=== PATIENT | male | born 1960 | race Caucasian/White ===

== ENCOUNTER 2020-07-14 10:53 | Emergency (ER) | payer OTHER ==
[~2020-07-14] VITALS: Ht 177.8 cm; Wt 75.7 kg
[2020-07-14] MEDS ORDERED: LOSARTAN POTAS100 MG (11:06)
[2020-07-14] MEDS ORDERED: TENOFOVIR DISO300 MG (11:07)
[2020-07-14] MEDS ORDERED: ABACAVIR300 MG (11:07)
[2020-07-14] MEDS ORDERED: SELZENTRY150 MG (11:07)
[2020-07-14] MEDS ORDERED: TIVICAY50 MG (11:07)
== END 2020-07-14 17:18 | disposition home or self-care (01) ==
LOC: ER 10:53 → CPU-OBS 11:40 → ER 11:40
DX: R07.89 Other chest pain (principal); Z11.52 Encounter for screening for COVID-19
CPT/HCPCS: G0378; G0379; 93005; 82805; 36600

== ENCOUNTER 2022-02-23 08:15 | Emergency (ER) | payer OTHER ==
[~2022-02-23] VITALS: Ht 172.7 cm; Wt 68.0 kg
[~2022-02-23 08:15] MED LIST: ABACAVIR300 MG; LOSARTAN POTAS100 MG; SELZENTRY150 MG; TENOFOVIR DISO300 MG; TIVICAY50 MG
== END 2022-02-23 18:30 | disposition home or self-care (01) ==
LOC: ER 08:15
DX: R42 Dizziness and giddiness (principal); I10 Essential (primary) hypertension; Z21 Asymptomatic human immunodeficiency virus [HIV] infection status; Z20.822 Contact with and (suspected) exposure to COVID-19

== ENCOUNTER 2023-10-22 01:07 | Inpatient (IN) | payer OTHER ==
[~2023-10-22] VITALS: Ht 175.3 cm; Wt 70.3 kg
[2023-10-22] MEDS ORDERED: ZYRTEC10 M3 PO (01:37)
[2023-10-22] MEDS ORDERED: HYOSCYAMINE SULFATE 0.125 MG TAB.SUBL SL STA (01:43)
[2023-10-22] MEDS ORDERED: FAMOTIDINE/PF 20 MG/2 ML VIAL IV PUSH STA (01:43)
[2023-10-22] MEDS ORDERED: TETANUS & DIPHTHERIA TOX,ADULT 0.5 ML VIAL IM STA (01:45)
[2023-10-22] MEDS ORDERED: POTASSIUM CHLORIDE/NACL 0.9% 1,000 ML IV ONE (01:45)
[2023-10-22] MEDS ORDERED: HYOSCYAMINE SULFATE 0.125 MG TAB.SUBL ONE (01:48)
[2023-10-22] MEDS ORDERED: TETANUS DIPHTHERIA TOX. ADSOR 5 ML VIAL IM ONE (01:49)
[2023-10-22] MEDS ORDERED: FAMOTIDINE/PF 20 MG/2 ML VIAL ONE (01:49)
[2023-10-22] MEDS ORDERED: POTASSIUM CHLORIDE/D5-0.9%NACL 20 MEQ/1,000 ML PIGGYBAG IV ONE (01:49)
[2023-10-22 02:05] LABS: HEMATOCRIT 43.2 % (39.0-48.0); HEMOGLOBIN 14.3 g/dL (13-16.00); MEAN CELL VOLUME 82.1 fL (80.0-100.00); MEAN CORPUSCULAR HEMOGLOBIN 27.2 pg (27.00-32.0); MEAN CORPUSCULAR HGB CONC 33.1 g/dl (32.0-36.0); PLATELET COUNT 177 K/uL (150-450); RED BLOOD COUNT 5.27 M/uL (4.00-6.00); RED CELL DISTRIBUTION WIDTH 15.1 % (11.5-14.5)
[2023-10-22 02:39] LABS: ALBUMIN 3.2 gm/dL (3.4-5.0); BILIRUBIN TOTAL 0.47 mg/dL (0.3-1.2); CALCIUM 8.5 mg/dL (8.5-10.1); CREATININE SERUM 1.34 mg/dL (0.70-1.30); GFR 53.84; GLOBULINA 3.3 G/DL (2.4-3.5); POTASSIUM 3.71 mEq/L (3.5-5.1); TOTAL PROTEIN 6.5 gm/dL (6.4-8.2)
[2023-10-22 02:55] LABS: PH,URINE 5.5 (5.0-8.0); URINE APPEARANCE Cloudy; URINE BILIRRUBIN Small (NEGATIVE); URINE BLOOD Negative; URINE COLOR Dark Yellow; URINE GLUCOSE Negative (NEGATIVE); URINE KETONE Trace (NEGATIVE); URINE LEUKOCYTE Negative; URINE NITRATE Negative
[2023-10-22 02:59] LABS: URINE BACTERIA 389.3 uL (0.0-1933); URINE EPITHELIAL CELLS 69.7 uL (0.0-38.8); URINE WBC 20.5 uL (0.0-23.2)
[2023-10-22 03:04] LABS: URINE PROTEIN 100 (NEGATIVE)
[2023-10-22 03:46] LABS: URINE MUCUS SCANT
[2023-10-22] MEDS ORDERED: CIPROFLOXACIN IN 5 % DEXTROSE 400 MG/200 ML PIGGYBAG IV STA (05:41)
[2023-10-22] MEDS ORDERED: LACTOBACILLUS ACIDOPHILUS 1 CAP CAP PO SCH ×2 (09:00→09:54)
[2023-10-22] MEDS ORDERED: DEXTROSE 5 % AND 0.9 % NACL 1,000 ML IV SCH (09:45)
[2023-10-22] MEDS ORDERED: HYOSCYAMINE SULFATE 0.125 MG TAB.SUBL SL SCH (09:52)
[2023-10-22] MEDS ORDERED: BISMUTH SUBSALICYLATE 524 MG/30 ML BLIST.PACK PO SCH (09:53)
[2023-10-22] MEDS ORDERED: LOPERAMIDE HCL 2 MG CAPSULE PO ONE (10:00)
[2023-10-22] MEDS ORDERED: FAMOTIDINE/PF 20 MG/2 ML VIAL IV SCH (17:00)
[2023-10-22] MEDS ORDERED: CIPROFLOXACIN IN 5 % DEXTROSE 200 ML IV SCH (21:00)
[2023-10-23] MEDS ORDERED: SODIUM CHLORIDE 0.45 % 1,000 ML IV SCH (15:15)
[2023-10-23] MEDS ORDERED: LOPERAMIDE HCL 2 MG CAPSULE PO STA (16:35)
[2023-10-23 21:18] LABS: HEMATOCRIT 38.6 % (39.0-48.0); HEMOGLOBIN 13.1 g/dL (13-16.00); MEAN CELL VOLUME 81.6 fL (80.0-100.00); MEAN CORPUSCULAR HEMOGLOBIN 27.8 pg (27.00-32.0); PLATELET COUNT 155 K/uL (150-450); RED BLOOD COUNT 4.72 M/uL (4.00-6.00); RED CELL DISTRIBUTION WIDTH 14.7 % (11.5-14.5)
[2023-10-23 21:35] LABS: CALCIUM 8.1 mg/dL (8.5-10.1); CREATININE SERUM 0.84 mg/dL (0.70-1.30); GFR 92.29; POTASSIUM 4.05 mEq/L (3.5-5.1)
[2023-10-24] MEDS ORDERED: HYOSCYAMINE0.125 M1 SL (10:04)
[2023-10-24] MEDS ORDERED: PEPTO-BISM262 MG/15 PO (10:05)
[2023-10-24] MEDS ORDERED: INTESTINEX680 M1 PO (10:05)
[2023-10-24] MEDS ORDERED: CIPRO500 MG PO (10:06)
[2023-10-24] MEDS ORDERED: PEPCID AC20 MG PO (10:06)
[2023-10-24] MEDS ORDERED: IMODIUM A-D2 M2 PO (10:07)
== END 2023-10-24 13:18 | disposition home or self-care (01) | DRG 391 ==
LOC: ER 01:07 → MEDJ 10:13 → SEC-K 10:13 → MEDJ 10:27
PROVIDERS: General Practice; ADMIT Internal Medicine Cardiovascular Disease; ATTEND Internal Medicine Cardiovascular Disease
PROC: B020ZZZ Computerized Tomography (CT Scan) of Brain (ICD-10-PCS; principal; 2023-10-22)
DX: A09 Infectious gastroenteritis and colitis, unspecified (principal); R57.1 Hypovolemic shock; E86.0 Dehydration; R55 Syncope and collapse; I10 Essential (primary) hypertension